=== PATIENT | male | born 1970 | race American Indian/Alaskan Native ===

== ENCOUNTER 2016-12-30 11:36 | Emergency (ER) | payer OTHER ==
[2016-12-30 11:56] VITALS: BP 149/106
[2016-12-30 12:15] LABS: Hematocrit 39.7 % (35.5-45.6); Hemoglobin 12.5 gm/dl (11.8-15.2); Mean Corpuscular HGB Conc 32 % (32-34); Platelet Count 312 K/mm3 (140-440); Red Blood Count 5.96 M/mm3 (3.65-5.03); Red Cell Distribution Width 15.7 % (13.2-15.2); White Blood Count 6.6 K/mm3 (4.5-11.0)
[2016-12-30 12:17] LABS: Mean Corpuscular Hemoglobin 21 pg (28-32); Mean Corpuscular Volume 67 fl (84-94)
[2016-12-30 12:36] LABS: Anion Gap 19 mmol/L; Blood Urea Nitrogen 11 mg/dL (9-20); Calcium 9.5 mg/dL (8.4-10.2); Carbon Dioxide 24 mmol/L (22-30); Glucose 105 mg/dL (75-100); Potassium 4.1 mmol/L (3.6-5.0); Sodium 137 mmol/L (137-145)
[2016-12-30 13:11] LABS: Blastocytes % (Manual) 0 %
[2016-12-30 13:12] LABS: Anisocytosis 1+; Diff Status Complete; Hypochromasia 2+; Large Platelets Rare; Platelet Estimate Cons
[2016-12-30 13:13] LABS: Ovalocytes Rare; Tear Drop Cells Rare
== END 2016-12-30 13:59 | disposition left against medical advice (07) ==
LOC: EDSEX → ED 11:36
DX: R07.81 Pleurodynia (principal); H92.02 Otalgia, left ear; R06.02 Shortness of breath; Z53.21 Procedure and treatment not carried out due to patient leaving prior to being seen by health care provider
CPT/HCPCS: 36415; 80048; 84484; 85007; 85025; 93005; 93010